=== PATIENT | female | born 1950 | race Caucasian/White ===

== ENCOUNTER → 2017-01-06 | Outpatient (CLI) | payer OTHER, BC | LOC: MRI 13:53 | DX: D32.0 Benign neoplasm of cerebral meninges (principal) ==

== ENCOUNTER → 2017-08-01 | Outpatient (CLI) | payer OTHER, BC | LOC: MRI 06:37 | DX: G45.8 Other transient cerebral ischemic attacks and related syndromes (principal); G93.0 Cerebral cysts; D49.6 Neoplasm of unspecified behavior of brain ==

== ENCOUNTER → 2018-07-09 | Outpatient (CLI) | payer OTHER, BC | LOC: MRI 12:15 | DX: I67.89 Other cerebrovascular disease (principal); G93.89 Other specified disorders of brain; Q75.8 Other specified congenital malformations of skull and face bones; G45.9 Transient cerebral ischemic attack, unspecified; Z98.890 Other specified postprocedural states ==

== ENCOUNTER → 2019-04-18 | Outpatient (CLI) | payer OTHER, BC | LOC: MRI 12:02 | DX: R42 Dizziness and giddiness (principal); D32.9 Benign neoplasm of meninges, unspecified; Z98.890 Other specified postprocedural states ==

== ENCOUNTER → 2019-09-23 | Outpatient (CLI) | payer OTHER, BC | LOC: MRI 10:43 | PROVIDERS: ATTEND Psychiatry & Neurology Neurology | DX: R55 Syncope and collapse (principal) ==

== ENCOUNTER → 2020-10-26 | Outpatient (CLI) | payer OTHER, MEDICARE | LOC: MRI 09:31 | PROVIDERS: ATTEND Psychiatry & Neurology Neurology | DX: D49.2 Neoplasm of unspecified behavior of bone, soft tissue, and skin (principal); I67.89 Other cerebrovascular disease; J34.1 Cyst and mucocele of nose and nasal sinus ==